=== PATIENT | male | born 1950 | race Two or more races ===

== ENCOUNTER 2016-09-29 08:28 | Inpatient (IN) | payer MEDICARE, OTHER ==
--- NOTE | 2016-09-28 15:27 | HP ---
DATE OF CLINIC: 09/21/2016 JASS SWENSON : 1950 PLANNED PROCEDURE: Left Total Knee Arthroplasty DATE OF SURGERY: September 29, 2016 SURGEON: Kodi Eng M.D. HISTORY OF PRESENT ILLNESS Jass Swenson is a 66 year old male. * Medication list reviewed with patient allergy list reviewed with patient. * Tried NSAIDS Aleve PRN * Tried Injections 03/2016-cortisone, no help * Has not tried Physical Therapy This is a 66-year-old gentleman who is here with left knee pain for many years. He has had increasing pain that now interrupts his activities. He has had injections with no significant relief. He has seen physical therapy. He has tried NSAIDs with no significant relief. He has previously a right total knee arthroplasty with Dr. Guajardo with moderate relief of his symptoms some ongoing challenges. He now desires knee replacement versus arthroscopy of the left knee. He was told by a physician in [place] that potentially an arthroscopy can buy him a few years before his arthroplasty. He is here for a second opinion. At this point he says that the knee bothers him some every day and it is limiting his ability to participate in activities as desired. After discussion and review of treatment options, both operative and non-operative, he has elected to proceed with surgery and presents today preoperatively. PAST MEDICAL AND SURGICAL HISTORY: His past medical and surgical history is reviewed. CURRENT MEDICATION * HydroCHLOROthiazide 25 MG Tablet 1 once a day 30 days, 0 refills * Ibuprofen 800 MG Tablet as needed 30 days, 0 refills * Tylenol 325 MG Tablet as needed 0 days, 0 refills PAST MEDICAL/SURGICAL HISTORY Reported: Medical: Renal history, history of Arthritis, Hypertension, and Osteoporosis. Surgical / Procedural: Knee replacement Left knee 2011. SOCIAL HISTORY Behavioral: Quit smoking used to socially smoked, hasn't for many year. Smoking status: Former smoker. Work: Occupation Marketing Editor. ALLERGIES * No Known Allergies REVIEW OF SYSTEMS No recent constitutional symptoms to include fevers and chills. No recent cardiovascular symptoms to include chest pain or palpitations. No recent respiratory symptoms to include shortness of breath or recent infections. PHYSICAL FINDINGS * Vitals taken 09/21/2016 03:17 pm BP-Sitting L 114/77 mmHg BP Cuff Size Regular Pulse Rate-Sitting 73 bpm Temp-Oral 97.6 F Height 69.5 in Weight 234 lbs Body Mass Index 34.1 kg/m2 Body Surface Area 2.22 m2 Pain Level 4 Ears, Nose, Throat: * ENT: normal. Lungs: * Clear to auscultation. Cardiovascular: Heart Rate and Rhythm: * Normal. Abdomen: * Normal. Neurological: Motor: * Dominant Hand = Right Hand. Patient is a well-developed, well-nourished male in no acute distress. They are awake, alert and conversant throughout the encounter. He is a primary Hebrew speaker and Kalina helps with translation. CARDIOVASCULAR: Intact peripheral pulses on bilateral lower extremities. No significant edema on inspection of bilateral lower extremities. NEUROLOGIC: Patient had intact coordinated composite motion of the bilateral lower extremities and sensation intact to light touch in all distributions of bilateral lower extremities. PSYCHIATRIC: Patient was oriented to person, place and time and displayed appropriate mood and affect during the encounter. SKIN: Exam of the skin on bilateral upper extremities showed no significant scars, lesions, rashes or masses. FOCUSED MUSCULOSKELETAL EXAM: The patient ambulates with mild antalgia on the left side. Normal resting station at the hips, knees and ankles. His left knee shows no significant erythema or ecchymosis. He has a 1+ effusion. He has tenderness to palpation along the medial joint line and medial to the patella. He has positive patella grind. No patellar instability. He is stable to varus stress. He has valgus pseudo-laxity with a firm endpoint. He is negative anterior and posterior drawer, negative Rashaad and a negative shift. He has exacerbation of his pain with Say's maneuver. He is able to perform a straight leg raise. His range of motion is from 0 to 120 degrees. He has 5/5 strength and flexion and extension at the knee. A warm and well perfused leg distally with intact sensation and a normal resting tone. IMAGING Review of x-rays shows varus pattern osteoarthritis with complete obliteration of the medial joint space, subchondral sclerosis, marginal osteophytes. ASSESSMENT A 66-year-old male with left knee osteoarthritis that is recalcitrant to non-operative measures. PREVIOUS TESTS * Test: URINALYSIS WITH MICROSCOPIC Report Date: 09/15/2016 EPITHELIAL CELL 0-1 WBC NEG GLUCOSE NEGATIVE BACTERIA 0 PH,URINE 8.0 SPEC. GRAVITY 1.015 KETONE NEGATIVE NITRITE NEGATIVE RBC 0-1 BLOOD TRACE BILIRUBIN NEGATIVE APPEARANCE CLEAR PROTEIN NEGATIVE COLOR YELLOW LEUK ESTERASE NEGATIVE UROBILINOGEN NORMAL * Test: CBC NO DIFF Report Date: 09/15/2016 WBC 6.0 10*3/mL RBC 4.94 10*6/uL MCH 32.2 pg High MCHC 35.8 g/dL RDW 12.3 % MCV 89.9 fL PLATELET COUNT 175 10*3/mL HCT 44.4 % HGB 15.9 g/L * Test: COMPREHENSIVE METABOLIC PANEL Report Date: 09/15/2016 ALT/SGPT 33 U/L ALBUMIN 4.5 g/dL ALB/GLOB RATIO 1.8 BUN 17 mg/dL BUN/CREAT RATIO 21 High CALCIUM 9.3 mg/dL GLUCOSE 92 mg/dL CREATININE 0.8 mg/dL SODIUM 135 meq/L POTASSIUM 3.8 meq/L CHLORIDE 100 meq/L CARBON DIOXIDE 29 meq/L ANION GAP 10 meq/L TOT PROTEIN 7.0 g/dL GLOBULIN 2.5 g/dL BILI,TOTAL 0.7 mg/dL AST/SGOT 24 U/L ALK PHOSPHATASE 59 U/L GFR 97 High * Test: PROTHROMBIN TIME Report Date: 09/15/2016 PROTIME 11.0 s INR 1.05 * Test: PARTIAL THROMBOPLASTIN TIME Report Date: 09/15/2016 APTT 25.4 s * Test: CULTURE, MRSA Report Date: 09/17/2016 CULTURE, MRSA See Report THERAPY * Patient not eligible for fall risk assessment. PLAN * Unilateral primary osteoarthritis, left knee OxyCODONE HCl 5 MG TABS, Take 1-2 tablets by mouth every 4 hours as needed for severe breakthrough pain, 14 days, 0 refills TraMADol HCl 50 MG TABS, Take 1-2 tablets by mouth ever 6 hours as needed for moderate breakthrough pain, 14 days, 0 refills OxyCONTIN 10 MG T12A, Take 1 tablet by mouth twice daily for baseline pain control, 30 days, 0 refills * Total knee arthroplasty -Left CARE TEAM Kristan Middleton MD [facility] SURGICAL CONSENT We have discussed surgical options including left TKA and non-operative management. The patient was counseled in detail regarding the diagnosis, treatment options available, prognosis of each treatment option and the potential risks and complications. The risks of surgery include, but are not limited to, anesthetic , neurovascular complications, pulmonary embolism, deep vein thrombosis, wound dehiscence, failure of any or all of the discussed procedures, infection of the joint or surrounding soft tissue, need for revision surgery, chronic pain, limitations in activities of daily living, inability to return to work, and loss of normal range of motion or functional use of the extremity. There is the possibility of failure over time that may require additional operative or non-operative treatment. The patient acknowledged that there are a number of perioperative risks not mentioned here and would still like to proceed. The patient is aware of and understands these risks, and wishes to proceed with the proposed surgical procedure and other procedures as indicated at the time of surgery. We will have the patient see their PCP for a preoperative medical risk assessment. The preoperative instructions were reviewed with the patient and all questions were answered. PB/sg
[2016-09-29] MEDS ORDERED: CEFAZOLIN SODIUM 2 GRAM PREMIX 100 ML IV ONE (09:07)
[2016-09-29] MEDS ORDERED: LACTATED RINGERS 1,000 ML ONE ×2 (09:07→12:08)
[2016-09-29] MEDS ORDERED: IV START KIT ONE (09:07)
[2016-09-29] MEDS ORDERED: TRAMADOL HCL 50 MG TABLET PO ONE (09:15)
[2016-09-29] MEDS ORDERED: CELECOXIB 200 MG CAPSULE PO ONE (09:15)
[2016-09-29] MEDS ORDERED: CLONIDINE HCL 0.1 MG/24 HR (7 DAY PATCH) TD SCH (09:15)
[2016-09-29] MEDS ORDERED: CEFAZOLIN SODIUM 2 GRAM DUPLEX 50 ML IV PRN (09:15)
[2016-09-29] MEDS ORDERED: BUPIVACAINE 0.25% (MDV) 24 ML, MORPHINE SULFATE 8 MG, EPINEPHRINE 0.3 MG in SODIUM CHLO... IF PRN (09:15)
[2016-09-29] MEDS ORDERED: ONDANSETRON 4 MG/2ML 2 ML VIAL IV ONE (09:15)
[2016-09-29] MEDS ORDERED: GABAPENTIN 600 MG TABLET PO ONE (09:15)
[2016-09-29] MEDS ORDERED: OXYCODONE HCL 10 MG TAB.SR PO ONE ×2 (09:15→09:54)
[2016-09-29] MEDS ORDERED: POLYMYXIN B SULFATE 500,000 UNITS, BACITRACIN 25,000 UNITS in SODIUM CHLORIDE 3 L IRRIG... IR PRN (09:15)
[2016-09-29] MEDS ORDERED: FAMOTIDINE 20 MG TABLET PO ONE (09:15)
[2016-09-29] MEDS ORDERED: BUPIVACAINE 0.25% (MDV) 20 ML in SODIUM CHLORIDE 0.9% FLUSH 20 ML IF PRN (09:15)
[2016-09-29] MEDS ORDERED: TRANEXAMIC ACID 1,000 MG in SODIUM CHLORIDE 0.9% 100 ML IV PRN (09:15)
[2016-09-29] MEDS ORDERED: GABAPENTIN 600 MG TABLET ONE (09:54)
[2016-09-29] MEDS ORDERED: TRAMADOL HCL 50 MG TABLET ONE (09:54)
[2016-09-29] MEDS ORDERED: CLONIDINE HCL 0.1 MG/24 HR (7 DAY PATCH) TD ONE (09:54)
[2016-09-29] MEDS ORDERED: FAMOTIDINE 20 MG TABLET ONE (09:54)
[2016-09-29] MEDS ORDERED: ONDANSETRON 4 MG/2ML 2 ML VIAL ONE (09:54)
[2016-09-29] MEDS ORDERED: CELECOXIB 200 MG CAPSULE ONE (09:55)
[2016-09-29] MEDS ORDERED: PROPOFOL 40 ML IV ONE (10:36)
[2016-09-29] MEDS ORDERED: LIDOCAINE 2% (PRES FREE) 5 ML VIAL ONE (10:36)
[2016-09-29] MEDS ORDERED: FENTANYL 250 MCG/5 ML AMP ONE (10:40)
[2016-09-29] MEDS ORDERED: MIDAZOLAM HCL 5 MG/5 ML VIAL ONE (10:40)
[2016-09-29] MEDS ORDERED: ROPIVACAINE 0.5% 30 ML VIAL ONE (11:10)
[2016-09-29] MEDS ORDERED: SPINAL PROCEDURAL TRAY 1 EACH ONE (11:10)
[2016-09-29] MEDS ORDERED: NERVE BLOCK PROCEDURAL TRAY 1 EACH ONE (11:10)
[2016-09-29] MEDS ORDERED: FENTANYL 100 MCG/2 ML VIAL IV PRN (13:32)
[2016-09-29] MEDS ORDERED: NALOXONE HCL 0.4 MG/ML VIAL IV PRN (13:32)
[2016-09-29] MEDS ORDERED: PROMETHAZINE HCL 25 MG/ML VIAL IM PRN (13:32)
[2016-09-29] MEDS ORDERED: ONDANSETRON 4 MG/2ML 2 ML VIAL IV PRN ×2 (13:32→15:42)
[2016-09-29] MEDS ORDERED: HYDRALAZINE HCL 20 MG/1 ML VIAL IV PRN (13:32)
[2016-09-29] MEDS ORDERED: LABETALOL HCL 5 MG/ML 20ML VIAL IV PRN (13:32)
[2016-09-29] MEDS ORDERED: HYDROMORPHONE HCL 1 MG/ML SYRINGE IV PRN (13:32)
[2016-09-29] MEDS ORDERED: ATROPINE SULFATE 0.4 MG/1 ML VIAL IV PRN (13:32)
[2016-09-29] MEDS ORDERED: MEPERIDINE 25 MG/ML SYRINGE IV PRN (13:32)
[2016-09-29] MEDS ORDERED: LACTATED RINGERS 1,000 ML IV SCH (13:45)
[2016-09-29] MEDS ORDERED: ON-Q PUMP/ROPIVACAINE 0.2% 450 ML ONE (14:47)
--- NOTE | 2016-09-29 15:11 | PCMBPN ---
Brief Post Op Note: Date of Procedure: 09/29/16 Start Time: 1300 Preoperative Diagnosis: 1. Left Knee Osteoarthritis Postoperative Diagnosis: 1. Same Procedure: Left TKA Surgeon: Kodi Eng MD Assist:WILBERTO Jansen Anesthesia: Mariano Vann CRNA Findings: See above Condition: Stable Complications: None IV Fluids: 1700 mLs of LR Urine Output: 550 mLs Estimated Blood Loss: 250 mLs Tourniquet Time: 29 min at 250mmHg Specimens: None Implants: ATTUNE: 38mm APatella, Size 8 PS Femur, Size 9 RP Tibial Base, Size 8 RP PS Tibial Insert Drains: [N/A]
[2016-09-29] MEDS: ON-Q PUMP/ROPIVACAINE 0.2% 450 ML in PREMIX BAG 1 EACH NB PRN (15:13)
[2016-09-29] MEDS ORDERED: TRAMADOL HCL 50 MG TABLET PO PRN (15:42)
[2016-09-29] MEDS ORDERED: TRAZODONE HCL 50 MG TABLET PO PRN (15:42)
[2016-09-29] MEDS ORDERED: HYDROXYZINE PAMOATE 25 MG CAPSULE PO PRN (15:42)
[2016-09-29] MEDS ORDERED: CALCIUM CARBONATE 500 MG TAB.CHEW PO PRN (15:42)
[2016-09-29] MEDS ORDERED: KETOROLAC TROMETHAMINE 30 MG/ML 1 ML VIAL IV PRN (15:42)
--- NOTE | 2016-09-29 15:52 | RAD ---
Exam: Two-view left knee COMPARISON: 07/20/2016 INDICATION: Postop left TKA. FINDINGS: AP and crosstable lateral views of left knee were obtained. Postsurgical changes of total left knee arthroplasty are appreciated. Alignment is normal. No pericomponent fracture is identified. Skin conrado are present. IMPRESSION: Expected postoperative appearance following left total knee arthroplasty.
[2016-09-29 16:12] VITALS: BMI 33.8
[2016-09-29] MEDS ORDERED: PUMP TUBING ONE (16:36)
[2016-09-29] MEDS: D5 1/2NS with 20 mEq KCL 1,000 ML IV SCH (16:40)
[2016-09-29] MEDS: ACETAMINOPHEN 500 MG TABLET PO SCH ×2 (17:07→22:33)
[2016-09-29] MEDS: HYDROMORPHONE HCL 0.5 MG/0.5 ML SYRINGE IV PRN ×2 (17:12→20:16)
[2016-09-29] MEDS: DOCUSATE SODIUM 100 MG CAPSULE PO SCH (20:15)
[2016-09-29] MEDS: CEFAZOLIN SODIUM 2 GRAM DUPLEX 2 G in Premix (D5W) 50 ml 1 EACH IV SCH (20:15)
[2016-09-29] MEDS: OXYCODONE HCL 10 MG TAB.SR PO SCH (20:15)
[2016-09-29] MEDS: ASCORBIC ACID 500 MG TABLET PO SCH (20:15)
[2016-09-30] MEDS: D5 1/2NS with 20 mEq KCL 1,000 ML IV SCH ×2 (01:09→07:53)
[2016-09-30] MEDS: OXYCODONE HCL 5 MG TABLET PO PRN ×4 (01:10→17:38)
[2016-09-30] MEDS: ACETAMINOPHEN 500 MG TABLET PO SCH ×3 (04:12→15:22)
[2016-09-30] MEDS: CEFAZOLIN SODIUM 2 GRAM DUPLEX 2 G in Premix (D5W) 50 ml 1 EACH IV SCH (04:12)
[2016-09-30 07:07] LABS: HEMATOCRIT 32.8 % (32.0-52.0); HEMOGLOBIN 11.8 gm/l (14.0-18.0); MEAN CELL VOLUME 91.1 fl (80.0-94.0); MEAN CORPUSCULAR HEMOGLOBIN 32.8 pg (27.0-31.0); RED CELL DISTRIBUTION WIDTH 12.5 % (11.5-14.5)
[2016-09-30 07:23] LABS: CALCIUM 8.1 mg/dL (8.6-10.3)
[2016-09-30] MEDS: ON-Q PUMP/ROPIVACAINE 0.2% 450 ML in PREMIX BAG 1 EACH NB PRN ×2 (07:31→09:32)
--- NOTE | 2016-09-30 08:11 | PDOC43 ---
- Subjective Findings: POD1 Left TKA. Pain Controlled. No new complaint. Subjective: Reports Pain Tolerable, Denies Chest Pain, Denies Shortness of Breath, Denies Nausea, Denies Vomiting - Objective Vital Signs Temperature 97.7 F 09/30/16 06:57 Pulse Rate 55 09/30/16 06:57 Respiratory Rate 16 09/30/16 06:57 Blood Pressure 92/52 09/30/16 06:57 O2 Saturation by Pulse Oximetry 98 09/30/16 06:57 Oxygen Delivery Method Nasal Cannula Oxygen Flow Rate 2 Laboratory 09/30/16 06:25 09/30/16 06:25 09/30/16 06:25 RBC 3.60 L MCH 32.8 H Estimated GFR 97 H Calcium 8.1 L Active Medication Orders Category Date Time Status Acetaminophen [Tylenol] Med 09/29/16 15:42 Active 1,000 mg PO Q6H Ascorbic Acid [Vitamin C] Med 09/29/16 21:00 Active 500 mg PO BID Aspirin (Enteric Coated) [Ecotrin] Med 09/30/16 09:00 Active 325 mg PO DAILY Bisacodyl [Dulcolax] Med 10/02/16 14:59 Active 10 mg PA DAILY PRN Calcium Carbonate [Tums] Med 09/29/16 15:42 Active 1,000 - 2,000 mg PO Q2H PRN D5 1/2NS with 20 mEq KCL [D51/2NS with 20 mEq KCL] 1, Med 09/29/16 15:42 Active 000 ml IV 125 mls/hr Docusate Sodium [Colace] Med 09/29/16 21:00 Active 100 mg PO BID Hydrochlorothiazide Med 09/30/16 09:00 Active 25 mg PO DAILY Hydromorphone HCl [Dilaudid] Med 09/29/16 15:42 Active 0.5 mg IV Q1H PRN Hydroxyzine Pamoate [Vistaril] Med 09/29/16 15:42 Active 25 - 50 mg PO Q4H PRN Ketorolac Tromethamine [Toradol] Med 09/29/16 15:42 Active 30 mg IV Q6H PRN Magnesium Hydroxide [Milk of Magnesia] Med 09/30/16 14:59 Active 30 ml PO DAILY PRN Multivitamins [One-A-Day] Med 09/30/16 09:00 Active 1 tab PO DAILY On-Q Pump/Ropivacaine 0.2% 450 ml Med 09/29/16 13:32 Active Premix Bag [Premix Fluid] 1 each NB Q50H Ondansetron 4 mg/2ml Vial [Zofran] Med 09/29/16 15:42 Active 4 - 6 mg IV Q6H PRN Oxycodone HCl [Roxicodone] Med 09/29/16 15:42 Active 5 - 10 mg PO Q4H PRN Oxycodone Sr [Oxycontin] Med 09/29/16 21:00 Active 10 mg PO Q12HR Remove Patch Med 09/30/16 14:59 Once 1 each TD X1 ONE Sodium Chloride 0.9% Flush [Normal Saline 10ml Flush] Med 09/29/16 15:42 Active 10 - 50 ml IV PRN PRN Sodium Chloride 0.9% Flush [Normal Saline 10ml Flush] Med 09/30/16 01:00 Active 10 ml IV Q8HR Tramadol HCl [Ultram] Med 09/29/16 15:42 Active 50 mg PO Q6H PRN Trazodone HCl [Desyrel] Med 09/29/16 15:42 Active 25 mg PO BEDTIME PRN Intake and Output 09/28/16 09/29/16 09/30/16 23:59 23:59 23:59 Intake Total 1900 4123 Output Total 1050 1100 Balance 850 3023 General: Afebrile Lungs: Normal Air Movement Abdomen: Soft Skin: Normal Color, Warm, Dry - Left Lower Extremity Incision: Dressing Clean/Dry/Intact, No Dressing Saturated Motor: Extensor Hallucis Longus: 5/5, Tibialis Anterior: 5/5, Gastrocnemius: 5/5 , Peroneals: 5/5, Quadriceps: 5/5 Gross Sensation to Light Touch: Present: Deep Peroneal Nerve, Superficial Peroneal Nerve - Problems (1) Status post total left knee replacement Status: Acute (2) Hypotension Status: Acute - Additional Comments POD1 Left TKA. Pain controlled. Patient would like to go home today if possible. 1. Physical Therapy: WBAT with [facility]. Plan for discharge home today if meets PT goals. 2. Pain Control: Continue decreasing pain ball, continue multimodal pain control. 3. DVT Prophylaxis: ASA 325mg, mobilization 4. Disposition: Possible discharge home today or Tuesday 5. Medical Issues: Vitals show hypotension today, but asymptomatic. Will hold HCTZ this morning and resume tomorrow.
[2016-09-30] MEDS: DOCUSATE SODIUM 100 MG CAPSULE PO SCH (08:27)
[2016-09-30] MEDS: ASCORBIC ACID 500 MG TABLET PO SCH (08:28)
[2016-09-30] MEDS: OXYCODONE HCL 10 MG TAB.SR PO SCH (08:28)
[2016-09-30] MEDS: REMOVE PATCH 1 EACH UNIT TD ONE ×2 (08:30→14:38)
[2016-09-30] MEDS ORDERED: HYDROCHLOROTHIAZIDE 25 MG TABLET PO SCH (09:00)
[2016-09-30] MEDS ORDERED: MULTIVITAMINS 1 TAB TABLET PO SCH (09:00)
[2016-09-30] MEDS ORDERED: ASPIRIN (ENTERIC COATED) 325 MG TABLET.EC PO SCH (09:00)
[2016-09-30] MEDS ORDERED: REMOVE PATCH 1 EACH UNIT TD SCH (09:15)
[2016-09-30] MEDS ORDERED: MAGNESIUM HYDROXIDE 30 ML UDCUP PO PRN (14:59)
[2016-09-30 15:58] VITALS: BP 103/65
--- NOTE | 2016-10-01 09:40 | OP ---
Jass FLORES : 05/06/1951 [id number] DATE OF SURGERY: September 29, 2016 PREOPERATIVE DIAGNOSIS: Left knee osteoarthritis. POSTOPERATIVE DIAGNOSIS: Left knee osteoarthritis. PROCEDURE PERFORMED: LEFT TOTAL KNEE ARTHROPLASTY. SURGEON: Kodi Eng M.D. FLY RAISER LOCKSTITCH: Jovanni Allen P.A.-C. SPECIMENS: No material was sent to the laboratory. ESTIMATED BLOOD LOSS: 250 mL. INTRAVENOUS FLUIDS: 1700 mL of crystalloid. URINE OUTPUT: 550 mL. TOURNIQUET TIME: 29 minutes at 300 mmHg. IMPLANTS: DePuy Attune size 8 posterior stabilized femur, size 9 rotating platform tibia, 5 mm insert and a 38 mm patella anatomic. DRAINS: No drains. INDICATIONS: This is a 66-year-old male with history and physical exam and radiographic findings consistent with left knee osteoarthritis. The patient has undergone a course of nonoperative measures without adequate relief of their symptoms. They desire definitive management in the form of a total knee arthroplasty. Risks, benefits and alternatives were discussed at length with the patient and they have elected to proceed. Preoperative clearances were performed and the patient was scheduled for surgery at the first available convenience. DESCRIPTION OF PROCEDURE: The patient was identified in the preoperative holding area where they were marked with indelible marker by the operating surgeon. The patient underwent ultrasound guided adductor canal block by the anesthesia provider. Patient was then taken to the operating room where they underwent a spinal anesthetic and was positioned supine on the operating room table. All bony prominences were padded and a well padded pre-calibrated nonsterile tourniquet was placed on the left upper thigh. Patient received perioperative antibiotics. The patient was prepped and draped in the usual sterile fashion for surgery. An operative time out was performed and confirmed by all members of the operative team. The leg was elevated and exsanguinated using an Esmarch bandage and the tourniquet was inflated at 300 mmHg. A standard anterior approach to the knee was utilized. Dissection was carried down to the fascia overlying the quadriceps and patellar tendons. A medial peripatellar arthrotomy was created. The infrapatellar and suprapatellar fat pads were excised along with medial and lateral menisci and the ACL and PCL. At this point the tourniquet was deflated. Retractors were placed to protect the collateral ligaments and the patella was slid laterally. The TruMatch guide for the femur was brought onto the field and pinned in place. This was exchanged for our distal femoral cut block. We confirmed our resection levels and then made the resection with an oscillating saw. The knee was hyperflexed and the Tarlow retractor was placed to deliver the tibia from under the femur. The TruMatch guide for the tibia was placed. Alignment was double checked with a set of drop rods. The guide was pinned in place and then exchanged for the proximal tibial cut guide. The resection level was again confirmed and the proximal tibial resection was made with an oscillating saw and completed with an osteotome and the proximal tibial resection piece was excised from the knee. At this point the retractors were removed and the knee was taken into extension and our extension block was checked and found to be satisfactory with a 5 mm danish. We returned our attention to the femur, pinning the 4-in-[address] using the previously drilled pins from the TruMatch guide. We double checked our alignment here as well as our flexion space and we were satisfied with the position of the block. Anterior, posterior and chamfer cuts were made and all bony pieces were excised. The knee was taken into hyperflexion and posterior osteophytes were removed using an osteotome and a curette. Finally, the tibia was sized with a base plate, drilled and punched and then a trial tibia was placed. The box cut guide for the femur was pinned in place and our box cut for the posterior stabilized femoral component was made and then a trial femur was placed. The trial 6 mm insert was placed and the knee was taken through a range of motion. It was found to be stable in all planes and to have appropriate extension and flexion. The patella was everted and held with two towel clips. Its thickness was measured to 27 mm initially. It was resected back using a freehand technique to 13 mm thick and sized for a 38 mm patellar button. The peg holes were drilled and a trial patella was placed. The knee was taken through a range of motion. The patella was found to track midline with a no hands technique. At this point all trial implants were removed from the knee. The posterior capsule was inspected and it was confirmed that there were no significant bleeders. Then knee was elevated and exsanguinated using an Esmarch bandage and the tourniquet was reinflated. Cement was mixed on the back table while we performed our first posterior capsular injection and then copiously irrigated the bony surfaces with sterile saline. Our final implants were cemented in place and all excess cement was removed from the knee. The knee was held in extension with a clamp on the patella while the cement dried. A final inspection was made of the knee after the cement was dry and the tourniquet was deflated. There were no significant bleeders and no residual cement or bony bodies within the knee. The knee was once again copiously irrigated with sterile saline and then a closure was performed using #0 Quill for the capsule, #2-0 Vicryl for the subcutaneous tissues and conrado in the skin. A sterile dressing of Xeroform, fluffs, ABD's, web roll and an ROSITA bandage was applied. The drapes were removed. The patient was awakened from anesthesia. Patient was then transferred to a stretcher and taken postoperatively to the post anesthesia care unit in stable condition. There were no observed intraoperative complications during this procedure. Job [id number] Cc: Siobhan Angela
[2016-10-02] MEDS ORDERED: BISACODYL 10 MG SUP PR PRN (14:59)
== END 2016-09-30 18:28 | disposition home or self-care (01) | DRG 470 ==
LOC: OR 09:14 → MS 16:10
PROVIDERS: ADMIT Orthopaedic Surgery; ATTEND Orthopaedic Surgery
PROC: 0SRD0J9 Replacement of Left Knee Joint with Synthetic Substitute, Cemented, Open Approach (ICD-10-PCS; principal; 2016-09-29)
DX: M17.12 Unilateral primary osteoarthritis, left knee (principal); Z87.891 Personal history of nicotine dependence